=== PATIENT | male | born 1960 | race Caucasian/White ===

== ENCOUNTER 2017-09-28 02:56 | Emergency (ER) | payer OTHER ==
[2017-09-28 03:29] LABS: BILIRUBIN,URINE NEGATIVE (NEG); CLARITY,URINE CLEAR; COLOR,URINE YELLOW; GLUCOSE,URINE 250 mg/dL (NEG); NITRITE,URINE NEGATIVE (NEG); PH,URINE 6.5; PROTEIN,URINE 100 mg/dL (NEG-TRACE); UROBILINOGEN,URINE 0.2 mg/dL (0.2 mg/dL)
[2017-09-28] MEDS: MORPHINE SULFATE 2 MG/ML DISP.SYRIN. IV ×4 (03:35→05:45)
[2017-09-28 03:38] LABS: ADD MAN DIFF? YES; BACTERIA,URINE 0 /HPF (0-FEW); BASO # 0.1 x10^3/uL (0.0-0.2); BASO % 1 % (0-3); EOS # 0.1 x10^3/uL (0.0-0.7); EOS % 1 % (0-3); HEMATOCRIT 44.2 % (39.0-53.0); HEMOGLOBIN 15.6 g/dL (13.0-17.5); LYMPH # 1.6 x10^3/uL (1.0-4.8); LYMPH % 10 % (24-48); MEAN CORPUSCULAR HEMOGLOBIN 32 pg (25-35); MEAN CORPUSCULAR HGB CONC 35 g/dL (31-37); MEAN CORPUSCULAR VOLUME 90 fL (79-100); MONO % 6 % (0-9); NEUT # 12.9 x10^3uL (1.8-7.7); NEUT % 83 % (31-73); PLATELET COUNT 203 x10^3/uL (140-400); RED BLOOD COUNT 4.91 x10^6/uL (4.30-5.70); RED CELL DISTRIBUTION WIDTH 13.3 % (11.5-14.5); SQUAMOUS EPITHELIAL CELL,UR OCC /LPF; WBC,URINE OCC /HPF (0-4); WHITE BLOOD COUNT 15.6 x10^3/uL (4.0-11.0)
[2017-09-28] MEDS ORDERED: ONDANSETRON PF 4 MG/2 ML VIAL. ×2 (03:44)
[2017-09-28] MEDS: ONDANSETRON PF 4 MG/2 ML VIAL. IV ×2 (03:46)
[2017-09-28 03:47] LABS: ANION GAP 13 (6-14); BLOOD UREA NITROGEN 15 mg/dL (8-26); CALCIUM 9.6 mg/dL (8.5-10.1); CARBON DIOXIDE 22 mmol/L (21-32); CHLORIDE 100 mmol/L (98-107); CREATININE 0.8 mg/dL (0.7-1.3); GFR 99.6; GLUCOSE 271 mg/dL (70-99); POTASSIUM 3.3 mmol/L (3.5-5.1); SODIUM 135 mmol/L (136-145)
[2017-09-28] MEDS ORDERED: MORPHINE SULFATE 10 MG/ML VIAL. ×2 (03:55)
[2017-09-28] MEDS: MORPHINE SULFATE 10 MG/ML VIAL. IV ×2 (04:02)
[2017-09-28] MEDS: KETOROLAC 15 MG/ML VIAL. IV ×2 (04:03)
[2017-09-28] MEDS: IV NORMAL SALINE 1000ML BAG 1,000 ML IV ×4 (04:23→05:49)
[2017-09-28] MEDS: MORPHINE SULFATE 4 MG/ML DISP.SYRIN. IV ×2 (06:46)
[2017-09-28 07:45] LABS: % BANDS 5 % (0-9); % EOS 1 % (0-5); % LYMPHS 11 % (24-48); % MONOS 5 % (0-10); % MYELOS 1 % (0-0); PLT ESTIMATE ADEQUATE (ADEQUATE)
[2017-09-28 07:46] LABS: % SEGS 77 % (35-66)
== END 2017-09-28 06:56 | disposition home or self-care (01) ==
LOC: ER 02:56
DX: N20.0 Calculus of kidney (principal); I10 Essential (primary) hypertension; K21.9 Gastro-esophageal reflux disease without esophagitis; E78.00 Pure hypercholesterolemia, unspecified
CPT/HCPCS: 36415; 74176; 80048; 81001; 85007; 85025; 96361; 96374; 96375; 96376; 99285-25; J1885; J2270; J2405; J7030

== ENCOUNTER 2021-12-29 07:58 | Emergency (ER) | payer OTHER ==
[~2021-12-29] VITALS: Ht 157.5 cm; Wt 70.2 kg
[~2021-12-29 07:58] MED LIST: ATOR10TA60 PO; HYDR-3164 PO; IRBE150T21 PO; OMEP20CA16 PO; SERT-268 PO; VORT10TA PO
[2021-12-29] MEDS ORDERED: IV NORMAL SALINE 1000ML BAG 1,000 ML IV ONE (08:45)
[2021-12-29] MEDS ORDERED: ONDANSETRON PF 4 MG/2 ML VIAL. ONE (08:45)
[2021-12-29] MEDS ORDERED: KETOROLAC 15 MG/ML VIAL. IVP ONE (08:45)
[2021-12-29] MEDS ORDERED: MORPHINE SULFATE 2 MG/ML INJ. IVP ONE (08:45)
[2021-12-29] MEDS ORDERED: ONDANSETRON PF 4 MG/2 ML VIAL. IVP ONE (09:00)
[2021-12-29] MEDS ORDERED: CONTRAST GIVEN. MC PRN (09:00)
[2021-12-29] MEDS ORDERED: IOHEXOL 300 MG/ML 100ML VIAL. IV ONE (09:00)
[2021-12-29 09:02] LABS: BASO # 0.1 x10^3/uL (0.0-0.2); BASO % 1 % (0-3); EOS # 0.4 x10^3/uL (0.0-0.7); EOS % 4 % (0-3); HEMATOCRIT 40.2 % (39.0-53.0); HEMOGLOBIN 14.3 g/dL (13.0-17.5); LYMPH # 2.3 x10^3/uL (1.0-4.8); LYMPH % 25 % (24-48); MEAN CORPUSCULAR HEMOGLOBIN 31 pg (25-35); MEAN CORPUSCULAR HGB CONC 36 g/dL (31-37); MEAN CORPUSCULAR VOLUME 89 fL (79-100); MONO # 0.6 x10^3/uL (0.0-1.1); MONO % 7 % (0-9); NEUT # 5.6 x10^3/uL (1.8-7.7); NEUT % 63 % (31-73); PLATELET COUNT 209 x10^3/uL (140-400); RED BLOOD COUNT 4.54 x10^6/uL (4.30-5.70); RED CELL DISTRIBUTION WIDTH 13.4 % (11.5-14.5); WHITE BLOOD COUNT 8.9 x10^3/uL (4.0-11.0)
[2021-12-29 09:06] LABS: ALBUMIN 3.9 g/dL (3.4-5.0); ALBUMIN/GLOBULIN RATIO 1.1 (1.0-1.7); CALCIUM 8.7 mg/dL (8.5-10.1); CREATININE 0.9 mg/dL (0.7-1.3); GFR 85.8; TOTAL BILIRUBIN 0.9 mg/dL (0.2-1.0); TOTAL PROTEIN 7.4 g/dL (6.4-8.2)
[2021-12-29 09:10] LABS: POTASSIUM 2.7 mmol/L (3.5-5.1)
[2021-12-29] MEDS ORDERED: POTASSIUM CHLORIDE 20 MEQ TABLET.ER. PO ONE (09:15)
[2021-12-29 09:27] LABS: BACTERIA,URINE 0 /HPF (0-FEW); RBC,URINE OCC /HPF (0-2)
--- NOTE | 2021-12-29 10:42 | RAD ---
EXAM: CT ABDOMEN/PELVIS WITH CONTRAST. HISTORY: Left lower quadrant pain. TECHNIQUE: Computed tomography of the abdomen and pelvis was performed after the intravenous administ ration of Isovue-370. One or more of the following individualized dose reduction techniques were util ized for this examination: 1. Automated exposure control. 2. Adjustment of the mA and/or kV according to patient size. 3. Use of iterative reconstruction technique. COMPARISON: 09/28/2017. FINDINGS: Lung windows through the visualized portions of the bases reveal mild atelectasis. Bone win dows reveal no suspicious lesions. Gallstones layer dependently in the gallbladder neck. There is no evidence of acute cholecystitis. Th e liver, spleen, pancreas and adrenal glands are unremarkable. There are no pathologically enlarged l ymph nodes. The appendix is not inflamed. There is no small bowel obstruction. There is no evidence of diverticul itis or clear colonic inflammation by CT. A small left inguinal hernia contains only fat. A calculus at the left ureterovesical junction measures <3 mm. The left kidney enhances with a slight delay in comparison with the right consistent with a component of obstruction. There is no hydroneph rosis. An enhancing lobulated region at the left renal upper pole may reflect cortical lobulation but renal cell carcinoma is not excluded. This measures 3.4 x 2.0 cm. Benign cysts at the right renal lower kevin e measure 12 mm or less. IMPRESSION: 1. 3.4 cm mass versus cortical lobulation at the left renal upper pole. MRI with and without contrast is recommended to exclude renal cell carcinoma. 2. 2 mm left ureterovesical junction calculus with evidence of obstruction. 3. Cholelithiasis. 4. Small left inguinal hernia containing only fat. Electronically signed by: Abhijit Rosales MD (12/29/2021 10:40 AM) [id number]
--- NOTE | 2021-12-29 11:16 | PHYS DOC ---
Past Medical History Past Medical History: Anxiety, Depression, GERD, High Cholesterol, Hypertension Additional Past Medical Histor: KIDNEY STONES Past Surgical History: Other Additional Past Surgical Histo: Inguinal hernia repair Smoking Status: Never Smoker Alcohol Use: Occasionally Drug Use: None General Adult EDM: Chief Complaint: ABDOMINAL PAIN HPI: HPI: 61-year-old male presents with left lower abdominal pain. Past medical history of kidney stones. States that it feels like his previous kidney stones but slightly worse. No dysuria urgency or frequency. No vomiting or diarrhea. No trauma. No recent falls. No history of diverticulitis. Has not had a colonoscopy. Is a diabetic on metformin currently. Review of Systems: Review of Systems: Constitutional: Denies fever or chills. [] Eyes: Denies change in visual acuity. [] HENT: Denies nasal congestion or sore throat. [] Respiratory: Denies cough or shortness of breath. [] Cardiovascular: Denies chest pain or edema. [] GI: Positive for left lower quadrant abdominal pain : Denies dysuria. [] Musculoskeletal: Denies back pain or joint pain. [] Integument: Denies rash. [] Neurologic: Denies headache, focal weakness or sensory changes. [] Endocrine: Denies polyuria or polydipsia. [] Lymphatic: Denies swollen glands. [] Psychiatric: Denies depression or anxiety. [] Heart Score: C/O Chest Pain: No Risk Factors: Risk Factors: DM, Current or recent (<one month) smoker, HTN, HLP, family history of CAD, obesity. Risk Scores: Score 0 - 3: 2.5% MACE over next 6 weeks - Discharge Home Score 4 - 6: 20.3% MACE over next 6 weeks - Admit for Clinical Observation Score 7 - 10: 72.7% MACE over next 6 weeks - Early Invasive Strategies Current Medications: Current Medications Medications (Trade) Dose Ordered Sig/Jaylene Start Time Stop Time Status Last Admin Dose Admin Info (CONTRAST GIVEN -- Rx MONITORING) 1 each PRN DAILY PRN 12/29/21 09:00 12/31/21 08:59 Iohexol (Omnipaque 300 Mg/ml) 75 ml 1X ONCE 12/29/21 09:00 12/29/21 09:01 DC 12/29/21 09:00 75 ML Ketorolac Tromethamine (Toradol 15mg Vial) 15 mg 1X ONCE 12/29/21 08:45 12/29/21 08:46 DC 12/29/21 08:48 15 MG Morphine Sulfate (Morphine Sulfate) 2 mg 1X ONCE 12/29/21 08:45 12/29/21 08:46 DC 12/29/21 08:49 2 MG Ondansetron HCl (Zofran) 4 mg 1X ONCE 12/29/21 09:00 12/29/21 09:01 DC 12/29/21 08:48 4 MG Potassium Chloride (Klor-Con) 40 meq 1X ONCE 12/29/21 09:15 12/29/21 09:16 DC 12/29/21 10:03 40 MEQ Sodium Chloride 1,000 ml @ 1,000 mls/hr 1X ONCE 12/29/21 08:45 12/29/21 09:44 DC 12/29/21 08:49 1,000 MLS/HR Allergies: Allergies: Allergies Coded Allergies Type Severity Reaction Last Updated Verified No Known Drug Allergies 01/08/14 No Physical Exam: PE: Constitutional: Well developed, well nourished, no acute distress, non-toxic appearance. [] HENT: Normocephalic, atraumatic, bilateral external ears normal, oropharynx moist, no oral exudates, nose normal. [] Eyes: PERRLA, EOMI, conjunctiva normal, no discharge. [] Neck: Normal range of motion, no tenderness, supple, no stridor. [] Cardiovascular: Normal S1-S2 Lungs & Thorax: Bilateral breath sounds clear to auscultation [] Abdomen: Tenderness left lower quadrant Skin: Warm, dry, no erythema, no rash. [] Back: No tenderness, no CVA tenderness. [] Extremities: No tenderness, no cyanosis, no clubbing, ROM intact, no edema. [] Neurologic: Alert and oriented X 3, normal motor function, normal sensory function, no focal deficits noted. [] Psychologic: Affect normal, judgement normal, mood normal. [] Current Patient Data: Labs: Laboratory Tests Test 12/29/21 08:22 12/29/21 08:28 White Blood Count 8.9 x10^3/uL (4.0-11.0) Red Blood Count 4.54 x10^6/uL (4.30-5.70) Hemoglobin 14.3 g/dL (13.0-17.5) Hematocrit 40.2 % (39.0-53.0) Mean Corpuscular Volume 89 fL (79-100) Mean Corpuscular Hemoglobin 31 pg (25-35) Mean Corpuscular Hemoglobin Concent 36 g/dL (31-37) Red Cell Distribution Width 13.4 % (11.5-14.5) Platelet Count 209 x10^3/uL (140-400) Neutrophils (%) (Auto) 63 % (31-73) Lymphocytes (%) (Auto) 25 % (24-48) Monocytes (%) (Auto) 7 % (0-9) Eosinophils (%) (Auto) 4 % (0-3) H Basophils (%) (Auto) 1 % (0-3) Neutrophils # (Auto) 5.6 x10^3/uL (1.8-7.7) Lymphocytes # (Auto) 2.3 x10^3/uL (1.0-4.8) Monocytes # (Auto) 0.6 x10^3/uL (0.0-1.1) Eosinophils # (Auto) 0.4 x10^3/uL (0.0-0.7) Basophils # (Auto) 0.1 x10^3/uL (0.0-0.2) Sodium Level 142 mmol/L (136-145) Potassium Level 2.7 mmol/L (3.5-5.1) *L Chloride Level 103 mmol/L (98-107) Carbon Dioxide Level 27 mmol/L (21-32) Anion Gap 12 (6-14) Blood Urea Nitrogen 9 mg/dL (8-26) Creatinine 0.9 mg/dL (0.7-1.3) Estimated GFR (Cockcroft-Gault) 85.8 BUN/Creatinine Ratio 10 (6-20) Glucose Level 301 mg/dL (70-99) H Calcium Level 8.7 mg/dL (8.5-10.1) Total Bilirubin 0.9 mg/dL (0.2-1.0) Aspartate Amino Transferase (AST) 21 U/L (15-37) Alanine Aminotransferase (ALT) 47 U/L (16-63) Alkaline Phosphatase 86 U/L (46-116) Total Protein 7.4 g/dL (6.4-8.2) Albumin 3.9 g/dL (3.4-5.0) Albumin/Globulin Ratio 1.1 (1.0-1.7) Lipase 151 U/L (73-393) Urine Collection Type Unknown Urine Color (Auto) Light yellow Urine Turbidity Clear Urine pH (Auto) 6.0 (<5.0-8.0) Urine Specific Deweese 1.024 (1.000-1.030) Urine Protein (Auto) Negative mg/dL (Negative) Urine Glucose (Auto)(UA) >=1000 mg/dL (Negative) Urine Ketones (Auto) Trace mg/dL (Negative) Urine Blood (Auto) Negative (Negative) Urine Nitrite Negative (Negative) Urine Bilirubin (Auto) Negative (Negative) Urine Urobilinogen (Auto) Normal mg/dL (Normal) Urine Leukocyte Esterase (Auto) Negative (Negative) Urine RBC Occ /HPF (0-2) Urine WBC 1-4 /HPF (0-4) Urine Squamous Epithelial Cells Occ /LPF Urine Bacteria 0 /HPF (0-FEW) Urine Mucus Slight /LPF Laboratory Tests 12/29/21 08:22 Laboratory Tests 12/29/21 08:22 Vital Signs: Vital Signs Date Time Temp Pulse Resp B/P (MAP) Pulse Ox O2 Delivery O2 Flow Rate FiO2 12/29/21 08:49 20 97 Room Air 12/29/21 08:04 98.0 108 204/126 (152) 98.0 EKG: EKG: [] Radiology/Procedures: Radiology/Procedures: Scan shows 2 mm stone at the left UVJ. Patient also has an incidental finding of a kidney mass on CT scan. I informed him that this could be a malignant process. I gave him a copy of the report and asked him to follow-up with his PCP regarding this as soon as possible. Patient and family members agree to do so. Patient also had some hypokalemia which was replenished. He was also informed about the high amount of glucose in his urine. I suspect his diabetes is very much uncontrolled at this point. Course & Med Decision Making: Course & Med Decision Making Pertinent Labs and Imaging studies reviewed. (See chart for details) [] Dragon Disclaimer: Dragon Disclaimer: This electronic medical record was generated, in whole or in part, using a voice recognition dictation system. Departure Departure Impression: Primary Impression: Hypokalemia Additional Impressions: Kidney stone Left kidney mass Disposition: HOME / SELF CARE / HOMELESS Condition: STABLE Referrals: OSEI MON MD (PCP) Patient Instructions: Kidney Stones Additional Instructions: Please follow-up with your primary care physician about the CT scan findings that we discussed today. For your kidney stone please continue to aggressively hydrate orally and use Motrin as necessary for pain. Please also talk your primary care doctor about your diabetes NED CAMPOS MD December 29, 2021 11:16
[2021-12-29 11:20] VITALS: BP 172/99
== END 2021-12-29 11:20 | disposition home or self-care (01) ==
LOC: ER 07:58
DX: E87.6 Hypokalemia (principal); N20.0 Calculus of kidney; N28.89 Other specified disorders of kidney and ureter; F41.9 Anxiety disorder, unspecified; F32.9 Major depressive disorder, single episode, unspecified; K21.9 Gastro-esophageal reflux disease without esophagitis; E78.00 Pure hypercholesterolemia, unspecified; I10 Essential (primary) hypertension; Z87.442 Personal history of urinary calculi
CPT/HCPCS: 36415; 74177; 80053; 81001; 83690; 85025; 96361; 96374; 96375; 99285; J1885; J2270; J2405; J7030; Q9967